=== PATIENT | male | born 1960 | race Caucasian/White ===

== ENCOUNTER 2022-10-29 09:50 | Outpatient (CLI) | payer OTHER, SELFPAY ==
--- NOTE | 2022-10-29 10:07 | ECG_ITS ---
Measurements Intervals [place] Rate: 75 P: 23 MS: 166 QRS: 8 QRSD: 77 T: 12 QT: 359 QTc: 402 Interpretive Statements SINUS RHYTHM NO PREVIOUS ECG AVAILABLE FOR COMPARISON Electronically Signed On 10-29-2022 14:55:37 PHOTO PRINT SPECIALIST by Columba Celis M.D.
== END 2022-10-29 09:51 | disposition home or self-care (01) ==
PROVIDERS: Anesthesiology; PCP Family Medicine; Visit Provider Surgery Plastic and Reconstructive Surgery
DX: Z01.812 Encounter for preprocedural laboratory examination (principal); Z01.810 Encounter for preprocedural cardiovascular examination; Z41.1 Encounter for cosmetic surgery
CPT/HCPCS: 36415; 85014; 85018; 93005

== ENCOUNTER 2022-11-06 01:37 | Day surgery (SDC) | payer OTHER, SELFPAY ==
[2022-10-26 14:54] VITALS: BMI 25.0
--- NOTE | 2022-10-26 15:01 | PC.NURSE ---
Report to the Outpatient Waiting Room, entrance under the green pavilion located off [facility], at time 6:00 on date 11/06/22. Planned Procedure Time: 7:30. Time changes happen often and if your time is changed the preop area will call you the afternoon before. - You and your visitor will be asked to self-screen and do not enter if you have any COVID symptoms. - Only one visitor is requested with a max of two and NO children visitors are allowed at this time. - The patient visitor may be requested to leave or wait in car when not with patient due to distancing restrictions. - A mask is optional within the hospital at this time. Patients may have clear liquids (water, carbonated beverages, clear teas, apple juice) until 3 hours prior to surgery (4:30) with a maximum of 20 ounces. - No food from midnight until time of surgery Take the following medications with a SIP of water the morning of surgery: AMLODIPINE, DOXYCYCLINE, TRAMADOL IF NEEDED DO NOT STOP ANY OF YOUR OTHER PRESCRIPTION MEDICATIONS PRIOR TO SURGERY EXCEPT THE FOLLOWING Medications to discontinue per physician: VITAMINS/SUPPLEMENTS Date to take last dose: 11/02/22 Please no make-up, nail burmese, hairspray, perfume, deodorant, or body powder the day of surgery. No jewelry (including any body piercings) or valuables the day of surgery, leave them at home. Please take a shower or bath the night before, or the morning of, surgery with an antibacterial soap. Wear comfortable, loose fitting clothing. - Jewelry must be removed prior to entering the operating room. Rings and piercings that are not removed may be cut off. - The hospital will not accept responsibility for valuables. - Please leave all valuables, including medications, at home the day of surgery. If you are going home after surgery, a licensed auto driver must drive you home. - NO public transportation without another adult if you receive anesthesia. - We recommend that an adult stay with you for 24 hours following discharge. - We also recommend that you do not drive, make important decision, drink alcoholic beverages, or take any drugs that were not prescribed by your health care provider for at least 24 hours after your discharge time. Follow any additional instructions given to you from your surgeon. If you or anyone in your household have experienced Covid symptoms in the past week, please notify your surgeon or the nurse liaison at the phone number below for possible testing. Telephone instructions given to NATALIE ESPINOZA and asked if any additional questions and then verbalized understanding. Patient advised to call surgeon office or pre surgery nurse liaison [phone] if any additional questions.
--- NOTE | 2022-11-05 16:43 | WPDANESEPPF ---
Anes - Initial Pre Proc Eval Procedure: Operation Date: 11/06/22 07:30 Proposed Procedures p Face Lift, - Mazin Jeter MD s Neck Lift - Mazin Jeter MD Date/Time: 11/05/22 16:43 Surgeon: Mazin Jeter MD Pre Op Diagnosis: skin laxity Patient Data Age: 62 Gender: M Height: 1.83 m Weight: 83.9 kg Allergies Allergy/AdvReac Type Severity Reaction Status Date / Time adhesive tape Allergy Blister Verified 10/26/22 14:48 latex Allergy Blister Verified 10/26/22 14:49 lactose AdvReac Unknown Verified 10/26/22 14:48 Home Medications Medication Instructions Recorded Confirmed Type amlodipine 5 mg tablet 5 mg PO DAILY 07/28/21 10/26/22 History multivitamin 1 tablet PO DAILY 07/28/21 10/26/22 History omeprazole 40 mg capsule,delayed 40 mg PO BID 07/28/21 10/26/22 History release simvastatin 80 mg tablet 80 mg PO HS 07/28/21 10/26/22 History tamsulosin 0.4 mg capsule 0.4 mg PO HS 07/28/21 10/26/22 History ascorbic acid (vitamin C) 500 mg 500 mg PO DAILY 10/26/22 10/26/22 History tablet (Vitamin C) calcium citrate 200 mg (950 mg) 200 mg PO DAILY 10/26/22 10/26/22 History tablet doxycycline hyclate 50 mg tablet 50 mg PO BID 10/26/22 10/26/22 History psyllium seed (sugar) oral powder 1 tbsp PO DAILY 10/26/22 10/26/22 History tramadol 50 mg tablet 50 mg PO Q4H PRN Pain 10/26/22 10/26/22 History ECG: Date of Service: 10/29/22 Procedure(s): CA 12 lead EKG Accession Number(s): [id number] cc: ~ ? Measurements Intervals? [place]? Rate: ? 75 ? P:? 23 CT: ? 166? QRS:? 8 QRSD: ? 77 ? T:? 12 QT: ? 359? QTc:? 402? Interpretive Statements SINUS RHYTHM NO PREVIOUS ECG AVAILABLE FOR COMPARISON Electronically Signed On 10-29-2022 14:55:37 TRAVELERS' AID WORKER by Columba Celis M.D. Patient hx anesthesia problems: none Family hx anesthesia problems: none Results Review: All pre-operative results and documents have been reviewed as part of the pre-operative evaluation. [facility] Past Medical History Medical History (Updated 11/05/22 @ 16:44 by Bismark Decker MD) BCC (basal cell carcinoma of skin) GERD (gastroesophageal reflux disease) High cholesterol History of lipoma History of Mohs micrographic surgery for skin cancer HTN (hypertension) Surgical History Surgical History (Updated 06/15/22 @ 08:12 by Vin Suh) History of blepharoplasty History of hernia repair History of sinus surgery Hx of LASIK Social History Social History (System 06/15/22 @ 08:12 by Vin Suh) Smoking status: Former smoker Tobacco type: cigarettes Additional smoking assessment comments: FORMER SOCIAL SMOKER Alcohol intake: current Alcohol use details: RARELY Substance use: never Substance use type: does not use Living arrangements: alone Spiritual care concerns: No Anes - Eval Final PreProcedure Day of Procedure 11/05/22 16:43 Patient weight: normal Heart: regular rate and rhythm Lungs: clear to auscultation and normal air movement Airway: Mallampati scale class II Neurological: alert and oriented Last oral intake: >/= 8 hours ASA classification: II Emergent: no Anesthetic plan: proceed Anesthesia type and monitoring: general ETT Results Review: All pre-operative results and documents have been reviewed as part of the pre-operative evaluation. Informed Consent: The patient's anesthetic plan and its attendant risks and benefits were discussed with the patient/family/POA. Questions were solicited and answers provided to the satisfaction of the patient/family/POA.
[2022-11-06] VITALS (10 sets, daily range): BP systolic 95–129; BP diastolic 70–83; PULSE 67–110; RESP 13–20; TEMP 36.6–37.1; O2SAT 92–99
[2022-11-06 06:29] LABS: Urine Cotinine NEGATIVE
[2022-11-06] MEDS: LACTATED RINGERS 1,000 ML 30 ML IV CONT ×2 (06:30→13:41)
--- NOTE | 2022-11-06 06:54 | WPDHPUPDATE1 ---
History and Physical Update Update Date/Time: 11/06/22 06:54 History and Physical has been reviewed, including an updated exam of the patient. There are NO changes in the patient's condition. Risks, benefits, and alternatives have been discussed and questions answered. Patient agrees to proceed with procedure.
[2022-11-06] MEDS: TRANEXAMIC ACID 1,000MG/ISO100 1,000 MG/100 ML BAG 200 MG IVPB (07:24)
[2022-11-06] MEDS: ceFAZolin 2 GM/D5W 50 ML 2 GM/50 ML BAG IVPB (07:24)
[2022-11-06] MEDS: BALANCED SALT SOLN OPHTH IRRIG 30 ML BTL 6 ML EACH EYE (10:09)
--- NOTE | 2022-11-06 10:38 | SUR.OPER ---
Notified per preop person calling for information on time to sampler pickup patient not name listed on SBAR which was verbally checked in preop and verified per patient. Patient stated no updates to anyone/only to call name on SBAR Angi if complication for OR staff and surgeon. Preop aware and no information given. Dr Jeter aware of information to be given only if complication.
[2022-11-06] MEDS: TRANEXAMIC ACID 1,000 MG/10 ML AMPUL 1000 MG IV PUSH (10:59)
[2022-11-06] MEDS: ceFAZolin SODIUM 1 GM VIAL IV PUSH (11:24)
--- NOTE | 2022-11-06 13:12 | W.PM.PROC2 ---
Procedure Note - Detailed Date of Procedure 11/06/22 Pre-op Diagnosis skin laxity Post-op Diagnosis Same Procedure Performed Face / Neck lift Surgeon Mazin Jeter MD Anesthesia General Description of Procedure Preoperatively the risks, benefits, alternatives were discussed in extensive detail. I want him to be very realistic about the risks involved as well as. Made sure answered all of his questions to his satisfaction. He voiced a clear understanding. Consent obtained. Patient was marked in the preoperative holding area with his verification. He was taken to the operative operating room placed supine on the operating table. Anesthesia provided by anesthesiology. I did suture the tube to his right central upper incisor. He was prepped and draped in a standard sterile fashion. Surgical time-out was taken. Using a tumescent solution with lidocaine, epinephrine, and TXA on a spinal needle infiltrated for the planned face and neck lift. A 15 blade used to make a submental incision. I elevated skin flaps with good 2-3 mm of adiposity throughout the neck. Then proceeded with a 15 blade to create the pretrichal post tragal incisions. I elevated these flaps as well with 2-3 mm of adipose tissue on him to maintain vascularity. During the procedure he bled very easily. We spent extensive extra time making sure to maintain strict hemostasis as we proceeded forward as it was clear he was an easy bleeding person. I then proceeded under bilateral platysma elevating to the level of the digastric. There is minimal sub platysmal adiposity and this was contoured as appropriate. Minimal submandibular gland hypertrophy. I took a triangle out at the level of the hyoid of the platysma. I then repaired the platysma submental as well as at the level of hyoid with 2-0 Vicryl. I elevated lateral platysma just anterior to the the sternocleidomastoid on each side. This was below the gonial ankle extending 4 cm inferior. I elevated the platysma with care taken to protect all nerve and vascular structures. These were identified and protected. I completed SMAS plication bilateral in multiple layers using 2-0 Vicryl. Once the smashed plication was set I did a back cut just inferior to the mandibular border of the platysma making sure I protected deep structures including the marginal mandibular nerve which was not seen and there is no evidence of injury. We were monitoring the nerve and there was no evidence of twitch. The platysma was then secured to the mastoid fascia with 2-0 Vicryl. I placed bilateral 10 Mickey drains these were brought out postauricular and sutured into place with 4-0 Vicryl. Skin flaps were inset tension-free. I trimmed. I closed anterior with 5 0 nylon under postauricular with 5 0 chromic. I closed submental with 3-0 Monocryl and running subcuticular 4-0 Monocryl and tissue glue. Dressings were placed. Patient was woken taken to the PACU without difficulty. All instrument sponge counts were correct at the end the case. Estimated Blood Loss 150 Drains Yes (Bilateral mickey ) Packing No Pathology None sent Complications No immediate complications Condition Stable Disposition PACU
[2022-11-06] MEDS: fentaNYL CITRATE INJ (*CRX) 100 MCG/2 ML VIAL 25 MCG IV PUSH ×8 (13:51→14:26)
[2022-11-06] MEDS: HYDROmorphone HCL INJ (*CRX) 1 MG/ML SYR 0.5 MG IV PUSH ×4 (14:32→15:14)
--- NOTE | 2022-11-06 15:30 | ADMGEN ---
This patient, Shaheen Dozier, was admitted to 2 Medical Room 260-. Patient/family oriented to hospital policies and general routines including ID bracelet, bed and alarms, visiting hours, pain management, procedures, bathroom and other care routines, personal items, smoking policy, room service/diet, and visiting hours. Information on how to activate the Rapid Response Team has been discussed. Patient/Family are encouraged to report perceived risks to care and to ask questions if they do not understand what they are told or what they should do.
[2022-11-06] MEDS: oxyCODONE/ACETAMINOPHEN (*CRX) 5-325 MG TABLET PO ×2 (16:08→22:59)
[2022-11-06] MEDS: LACTATED RINGERS 1,000 ML 125 ML IV CONT (16:09)
[2022-11-06] MEDS: PANTOPRAZOLE 40 MG TABLET PO (17:33)
[2022-11-06] MEDS: carisoprodoL (*CRX) 350 MG TABLET PO ×2 (17:36→23:00)
[2022-11-06] MEDS: SIMVASTATIN 20 MG TABLET 80 MG PO (23:00)
[2022-11-06] MEDS: DOCUSATE SODIUM 100 MG CAPSULE PO (23:00)
[2022-11-06] MEDS: TAMSULOSIN HCL 0.4 MG CAPSULE PO (23:01)
[2022-11-07 02:50] VITALS: BP 104/59; PULSE 67; RESP 20; TEMP 36.6; O2SAT 98
[2022-11-07] MEDS: oxyCODONE/ACETAMINOPHEN (*CRX) 5-325 MG TABLET PO (03:26)
[2022-11-07 06:00] VITALS: BP 140/80; PULSE 85; RESP 21; TEMP 36.8; O2SAT 100
[2022-11-07] MEDS: carisoprodoL (*CRX) 350 MG TABLET PO (06:19)
--- NOTE | 2022-11-07 06:34 | WPDPN ---
Progress Note: A&P Assessment and Plan (1) Skin laxity: Code(s): L57.4 - Cutis laxa senilis Status: Acute Assessment and Plan: Will plan for discharge home. Continue drains. I will see him back. Call with any questions or concerns. Today we had a lengthy discussion about the care. Activity limitations. What monitor for. This was a lengthy open-ended conversation answering all of his questions. He voiced a clear understanding. I will see him back. (2) HTN (hypertension): Code(s): I10 - Essential (primary) hypertension Status: Acute Subjective Date/time seen: 11/07/22 06:34 Interval history: He has done very well after face and neck lift overnight. Pain controlled. No fevers or chills. No nausea vomiting. No shortness of breath. No chest pain. No calf tenderness. Review of Systems Review of Systems: All systems reviewed & are unremarkable except as noted in HPI and below Exam Narrative: Alert and oriented no obvious distress Respiratory unlabored Cranial nerves 2-12 grossly intact. PERRLA EOMI. Drains are becoming serosanguineous. No signs of infection. No hematoma. No seroma. Good color and capillary refill throughout. No calf tenderness. Negative Homans. Objective Data Vital Signs Vital Signs: Vital Signs - 24 hr 11/06/22 06:54 11/06/22 13:41 11/06/22 13:56 Temperature 37.1 C 36.6 C Pulse Rate 78 110 H 100 Respiratory Rate 16 16 14 Blood Pressure 95/77 L 116/82 121/83 Pulse Oximetry 97 97 92 Oxygen Delivery Room Air Simple Face Mask Room Air Oxygen Flow Rate 8 11/06/22 14:10 11/06/22 14:25 11/06/22 14:40 Temperature Pulse Rate 100 97 95 Respiratory Rate 14 13 14 Blood Pressure 120/82 129/77 112/79 Pulse Oximetry 98 98 98 Oxygen Delivery Nasal Cannula Nasal Cannula Nasal Cannula Oxygen Flow Rate 3 3 3 11/06/22 14:55 11/06/22 15:08 11/06/22 18:26 Temperature 36.8 C Pulse Rate 92 91 67 Respiratory Rate 14 15 18 Blood Pressure 116/78 111/73 112/70 Pulse Oximetry 98 97 99 Oxygen Delivery Nasal Cannula Nasal Cannula Oxygen Flow Rate 3 3 11/06/22 22:28 11/07/22 02:50 Temperature 36.7 C 36.6 C Pulse Rate 84 67 Respiratory Rate 20 20 Blood Pressure 123/80 104/59 L Pulse Oximetry 99 98 Oxygen Delivery Oxygen Flow Rate Intake/Output Intake/Output: Intake & Output 11/04/22 11/05/22 11/06/22 11/07/22 23:59 23:59 23:59 23:59 Intake Total 3310 Output Total 11 Balance 3299 Meds/Results Medications: Active Medications Generic Name Dose Route Start Last Admin Trade Name Freq PRN Reason Stop Dose Admin Amlodipine Besylate 5 mg 11/07/22 09:00 Amlodipine Besylate 5 Mg Tablet PO DAILY TRUDY Carisoprodol 350 mg 11/06/22 18:00 11/07/22 06:19 Carisoprodol (*Crx) 350 Mg Tablet PO 350 mg Q6HR TRUDY Administration Diazepam 5 mg 11/06/22 13:45 Diazepam (*Crx) 5 Mg Tablet PO TID PRN Anxiety Diphenhydramine HCl 25 mg 11/06/22 18:08 Diphenhydramine Hcl Cap 25 Mg Capsule PO BID PRN Secretions Docusate Sodium 100 mg 11/06/22 21:00 11/06/22 23:00 Docusate Sodium 100 Mg Capsule PO 100 mg Q12HR TRUDY Administration Morphine Sulfate 2 mg 11/06/22 13:45 Morphine Sulfate (*Crx) 2 Mg/Ml Inj IV PUSH Q2H PRN Pain Ondansetron HCl 4 mg 11/06/22 13:45 Ondansetron Inj 4 Mg/2 Ml Vial IV PUSH Q6H PRN Nausea Oxycodone/Acetaminophen 1 - 2 tablet 11/06/22 13:45 11/07/22 03:26 Oxycodone/Acetaminophen (*Crx) 5-325 Mg Tablet PO 2 tablet Q6H PRN Administration Pain Pantoprazole Sodium 40 mg 11/06/22 17:00 11/06/22 17:33 Pantoprazole 40 Mg Tablet PO 40 mg BID TRUDY Administration Simvastatin 80 mg 11/06/22 21:00 11/06/22 23:00 Simvastatin 20 Mg Tablet PO 80 mg HS TRUDY Administration Tamsulosin HCl 0.4 mg 11/06/22 21:00 11/06/22 23:01 Tamsulosin Hcl 0.4 Mg Capsule PO 0.4 mg HS TRUDY Admin
--- NOTE | 2022-11-07 06:40 | P.DS_ITS ---
DS: Admitting Diagnosis Discharge Date 11/07/2022 Admitting Diagnosis Skin Laxity HTN DS: Discharge Diagnosis Discharge Diagnosis (1) Skin laxity: Code(s): L57.4 - Cutis laxa senilis Status: Acute (2) HTN (hypertension): Code(s): I10 - Essential (primary) hypertension Status: Acute DS: Summary Hospital Course Hospital Course: He underwent face and neck lift. Postoperatively has done well. Will plan for discharge home. I will see him back. Time Spent with Patient Time attestation: Total time spent providing and/or coordinating discharge services: Exam Narrative: Alert and oriented no obvious distress Respiratory unlabored He has a full smile. Facial nerve intact. PERRLA EOMI. Drains are becoming serosanguineous. No signs of infection. No hematoma. No seroma. Good color and capillary refill throughout. No calf tenderness. Negative Homans. Discharge Plan Discharge Patient Disposition: Home, Self-Care Discharge Instructions: POST OPERATIVE DISCHARGE INSTRUCTIONS MAZIN JETER M.D. [facility] PLASTIC SURGERY [facility] [facility] [address] [place] [address] * No driving for 24 hours after anesthesia and while you are taking pain medication. * Take all prescribed medication as directed * Diet as tolerated. * No lifting or activity that raises blood pressure for 48 hours. * Regular walking / ambulation. * No showering until directed to. Once you shower do not take pain medication before showering as the combination of medication and heat may cause you to feel dizzy or pass out. * No pools or tubs for 2 weeks. * Call with any questions or concerns. * Sleep flat. * Dressing Care: Continue support 23 hours per day until follow-up. If you have any questions or concerns, please call the office . If it is after hours you will be directed to the military personnel specialist exchange. Shortness of breath, chest pain, or other medical emergency dial 911 / proceed to the Emergency Room. [facility] Alone Forms: General Discharge Instructions Follow-up/Referrals: Mazin Jeter MD [Physician] - 1 Week Discharge Medications: Continued multivitamin Tablet 1 tablet PO DAILY amlodipine 5 mg tablet 5 mg PO DAILY simvastatin 80 mg tablet 80 mg PO HS omeprazole 40 mg capsule,delayed release(DR/EC) 40 mg PO BID tamsulosin 0.4 mg capsule 0.4 mg PO HS tramadol 50 mg Tablet 50 mg PO Q4H PRN (Reason: Pain) ascorbic acid (vitamin C) [Vitamin C] 500 mg Tablet 500 mg PO DAILY calcium citrate 200 mg (950 mg) Tablet 200 mg PO DAILY psyllium seed (sugar) Powder 1 tbsp PO DAILY doxycycline hyclate 50 mg Tablet 50 mg PO BID diphenhydramine HCl 25 mg capsule 50 mg QID PRN (Reason: Secretions)
[2022-11-07] MEDS: DOCUSATE SODIUM 100 MG CAPSULE PO (08:05)
[2022-11-07] MEDS: amLODIPine BESYLATE 5 MG TABLET PO (08:05)
[2022-11-07] MEDS: PANTOPRAZOLE 40 MG TABLET PO (08:06)
== END 2022-11-07 09:00 | disposition home or self-care (01) ==
LOC: ANHSURGERY 13:49 → ANH2MED 15:24
PROVIDERS: PCP Family Medicine; Visit Provider Surgery Plastic and Reconstructive Surgery
PROC: (CPT 15824; principal; 2022-11-06 07:30)
PROC: (CPT 15819; 2022-11-06 07:30)
DX: Z41.1 Encounter for cosmetic surgery (principal); L57.4 Cutis laxa senilis; I10 Essential (primary) hypertension; E78.00 Pure hypercholesterolemia, unspecified; Z79.899 Other long term (current) drug therapy; Z87.891 Personal history of nicotine dependence
CPT/HCPCS: 15825; 15829; 80307; A9270; J0171; J0330; J0690; J1100; J1170; J2250; J2405; J2704; J3010; J7030; J7120; Q9968